=== PATIENT | male | born 1995 | race Two or more races ===

== ENCOUNTER 2023-04-01 02:51 | Emergency (ER) | payer OTHER ==
[~2023-04-01] VITALS: Ht 175.3 cm; Wt 65.8 kg
[2023-04-01] MEDS ORDERED: KETO10TA2 PO (04:51)
== END 2023-04-01 04:57 ==
LOC: ER 02:51
DX: S29.011A Strain of muscle and tendon of front wall of thorax, initial encounter (principal); X58.XXXA Exposure to other specified factors, initial encounter; Y93.9 Activity, unspecified; Y92.9 Unspecified place or not applicable; Y99.9 Unspecified external cause status